=== PATIENT | female | born 1990 | race Caucasian/White ===

== ENCOUNTER 2017-03-27 07:35 | Day surgery (SDC) | payer BC ==
[2017-03-23 17:22] LABS: ADD MAN DIFF? NO
[2017-03-23 17:24] LABS: BASOPHILS % 0.3 % (0.0-2.0); EOSINOPHILS # 0.1 10^3/ul (0.0-0.5); EOSINOPHILS % 0.6 % (0.0-7.0); HEMATOCRIT 40.8 % (37.0-47.0); HEMOGLOBIN 13.8 g/dl (12.0-16.0); LYMPHOCYTES # 2.6 10^3/ul (0.8-2.9); MEAN CORPUSCULAR HEMOGLOBIN 29.1 pg (29.0-33.0); MEAN CORPUSCULAR HGB CONC 33.8 g/dl (32.0-37.0); MEAN CORPUSCULAR VOLUME 86.1 fl (82.0-101.0); MEAN PLATELET VOLUME 9.2 fl (7.4-10.4); MONOCYTE # 0.5 10^3/ul (0.3-0.9); MONOCYTES % 4.1 % (0.0-11.0); NEUTROPHIL # 8.5 10^3/ul (1.6-7.5); NEUTROPHILS % 72.6 % (39.0-77.0); PLATELET COUNT 419 10^3/UL (140-415); RED BLOOD COUNT 4.74 10^6/ul (4.20-5.40); RED CELL DISTRIBUTION WIDTH 12.7 % (11.5-14.5)
[2017-03-23 17:24] LABS: WHITE BLOOD COUNT 11.7 10^3/ul (4.8-10.8)
[2017-03-23 17:39] LABS: INR 0.91; PROTIME 12.3 Sec (11.9-14.9)
[2017-03-23 17:40] LABS: PARTIAL THROMBOPLASTIN TIME 32.6 Sec (25.0-35.0)
[2017-03-23 17:47] LABS: ANION GAP 14 (8-16); CARBON DIOXIDE 27 mmol/L (21-31); CHLORIDE 104 mmol/L (97-110); GLUCOSE 88 mg/dl (70-220)
[2017-03-23 17:52] LABS: BLOOD UREA NITROGEN 8 mg/dl (7-20); CALCIUM 9.8 mg/dl (8.4-10.2); POTASSIUM 4.1 mmol/L (3.5-5.1); SODIUM 141 mmol/L (135-144)
[2017-03-27] MEDS ORDERED: DEXAMETHASONE 4 MG/ML 1 ML INJ ×2 (08:52→09:25)
[2017-03-27] MEDS ORDERED: ONDANSETRON 4 MG INJ (09:25)
[2017-03-27] MEDS ORDERED: MIDAZOLAM 1 MG/ML 2 ML INJ (09:25)
[2017-03-27] MEDS ORDERED: LIDOCAINE 2% (SDV) 5 ML INJ (09:25)
[2017-03-27] MEDS ORDERED: FENTAnyl 50 MCG/ML VIAL ×2 (09:25→10:35)
[2017-03-27] MEDS ORDERED: FAMOTIDINE 20 MG INJ (09:25)
[2017-03-27] MEDS ORDERED: PROPOFOL 20 ML (09:25)
[2017-03-27] MEDS ORDERED: PROPOFOL 40 ML (10:10)
[2017-03-27] MEDS ORDERED: KETOROLAC 30 MG INJ (10:10)
[2017-03-27] MEDS ORDERED: CEFAZOLIN 1 GM INJ (10:10)
[2017-03-27] MEDS ORDERED: morphine (1 MG/ML) 10ML SYRINGE IV (10:30)
[2017-03-27] MEDS ORDERED: FENTAnyl 50 MCG/ML VIAL IV (10:30)
[2017-03-27] MEDS ORDERED: HYDROmorphONE (0.2 MG/ML) 10ML SYG IV (10:30)
[2017-03-27] MEDS ORDERED: LABETALOL HCL 20MG INJ IV (10:30)
[2017-03-27] MEDS: POVIDONE IODINE 10% 28.4 GM OINT (10:50)
[2017-03-27] MEDS: BUPIVACAINE 0.5% (SDV) 30 ML INJ (10:50)
[2017-03-27] MEDS: HYDROmorphONE (0.2 MG/ML) 10ML SYG IV ×4 (11:19→11:51)
[2017-03-27] MEDS: ONDANSETRON 4 MG INJ IV ×2 (11:19→12:46)
== END 2017-03-27 13:40 | disposition home or self-care (01) ==
LOC: SDS 07:35
DX: M20.12 Hallux valgus (acquired), left foot (principal); M20.42 Other hammer toe(s) (acquired), left foot; G80.9 Cerebral palsy, unspecified; E78.00 Pure hypercholesterolemia, unspecified; E66.9 Obesity, unspecified; Z68.32 Body mass index [BMI] 32.0-32.9, adult
CPT/HCPCS: 28298; 80048; 82962; 84702; 85025; 85610; 85730